=== PATIENT | female | born 1960 ===

== ENCOUNTER 2021-12-04 08:01 | Outpatient (CLI) | payer OTHER | END 2021-12-04 08:04 | disposition home or self-care (01) | LOC: RX STUDY 08:01 | PROVIDERS: ATTEND Surgery | DX: K57.20 Diverticulitis of large intestine with perforation and abscess without bleeding (principal); R19.4 Change in bowel habit; Z93.3 Colostomy status ==

== ENCOUNTER 2022-01-01 10:15 | Inpatient (IN) | payer OTHER ==
[2022-01-01] MEDS ORDERED: SYNTHROID137 MCG PO (12:33)
[2022-01-01] MEDS ORDERED: TRAMA PO (12:33)
[2022-01-01] MEDS ORDERED: CAMBIA50 MG PO (12:34)
[2022-01-01] MEDS ORDERED: HORIZANT600 MG PO (12:34)
[2022-01-01] MEDS ORDERED: ORPHENADRINE PO (12:36)
[2022-01-01] MEDS ORDERED: CALTRATE 600+D1 EAC1 PO (12:37)
[2022-01-04] MEDS ORDERED: NORFLEX100MG (08:52)
[2022-01-04] MEDS ORDERED: TRAMADOL HCL300 M1 (08:53)
[2022-01-09] MEDS ORDERED: OXYC1TAB9 PO (07:28)
[2022-01-09] MEDS ORDERED: HYOSCYAMINE0.125 M1 SL (07:29)
== END 2022-01-09 11:22 | disposition home or self-care (01) | DRG 331 ==
LOC: SURG 01-04 06:32 → O/R 01-04 06:32 → SURG 01-04 10:15
PROVIDERS: ADMIT Surgery; ATTEND Surgery
PROC: 0DBP4ZZ Excision of Rectum, Percutaneous Endoscopic Approach (ICD-10-PCS; 2022-01-04)
PROC: 0DTN4ZZ Resection of Sigmoid Colon, Percutaneous Endoscopic Approach (ICD-10-PCS; 2022-01-04)
PROC: 0DTJ4ZZ Resection of Appendix, Percutaneous Endoscopic Approach (ICD-10-PCS; 2022-01-04)
PROC: 0WQF4ZZ Repair Abdominal Wall, Percutaneous Endoscopic Approach (ICD-10-PCS; 2022-01-04)
PROC: 0DN84ZZ Release Small Intestine, Percutaneous Endoscopic Approach (ICD-10-PCS; 2022-01-04)
PROC: 0DJD8ZZ Inspection of Lower Intestinal Tract, Via Natural or Artificial Opening Endoscopic (ICD-10-PCS; 2022-01-04)
PROC: 0DBE4ZZ Excision of Large Intestine, Percutaneous Endoscopic Approach (ICD-10-PCS; principal; 2022-01-04 12:15)
DX: K57.20 Diverticulitis of large intestine with perforation and abscess without bleeding (principal); R19.4 Change in bowel habit; K52.9 Noninfective gastroenteritis and colitis, unspecified; K43.5 Parastomal hernia without obstruction or gangrene; N73.6 Female pelvic peritoneal adhesions (postinfective); N99.4 Postprocedural pelvic peritoneal adhesions; D12.1 Benign neoplasm of appendix; Z43.3 Encounter for attention to colostomy; Z20.822 Contact with and (suspected) exposure to COVID-19

== ENCOUNTER 2022-02-21 10:01 | Inpatient (IN) | payer OTHER ==
[~2022-02-21] VITALS: Ht 165.1 cm; Wt 72.6 kg
[~2022-02-21 10:01] MED LIST: CALTRATE 600+D1 EAC1 PO; CAMBIA50 MG PO; HORIZANT600 MG PO; HYOSCYAMINE0.125 M1 SL; NORFLEX100MG; ORPHENADRINE PO; OXYC1TAB9 PO; SYNTHROID137 MCG PO; TRAMA PO; TRAMADOL HCL300 M1
--- NOTE | 2022-02-21 10:25 | NUR ---
PACIENTE ALERTA Y ORIENTADA X3, REFIERE DOLOR ABDOMINAL Y NAUSEAS DESDE HACE DOS MA. REFIERE UN EPISODIO DE VOMITO. SE MINITOREAN VS Y SE UBICA EN OBSERVACION
--- NOTE | 2022-02-21 11:56 | NUR ---
SE ORIENTA PTE SOBRE TX A SEGUIR, EL CUAL REFIERE ENTENDER. SE COLECTAN MUESTRAS Y SE CANALIZA PTE UTILIZANDO MEDIDAS ASEPTICAS. SE ADM. MEDICAMENTOS NIKO ORDEN MEDICA. PEND CT ABD/PEL CON CONTRASTE IV
[2022-02-25] MEDS ORDERED: TRAM1TAB98 (11:00)
== END 2022-02-28 11:07 | disposition home or self-care (01) | DRG 389 ==
LOC: ER 10:01 → SURG 19:10 → SEC-K 19:10 → SURG 02-22 04:27 → SURH 02-26 13:25
PROVIDERS: ADMIT Surgery; ATTEND Surgery
PROC: BW21Y0Z Computerized Tomography (CT Scan) of Abdomen and Pelvis using Other Contrast, Unenhanced and Enhanced (ICD-10-PCS; 2022-02-21)
PROC: 0D9670Z Drainage of Stomach with Drainage Device, Via Natural or Artificial Opening (ICD-10-PCS; principal; 2022-02-22)
PROC: 02HV33Z Insertion of Infusion Device into Superior Vena Cava, Percutaneous Approach (ICD-10-PCS; 2022-02-23)
PROC: 3E0436Z Introduction of Nutritional Substance into Central Vein, Percutaneous Approach (ICD-10-PCS; 2022-02-23)
DX: K56.600 Partial intestinal obstruction, unspecified as to cause (principal); K57.20 Diverticulitis of large intestine with perforation and abscess without bleeding; K59.00 Constipation, unspecified; E87.5 Hyperkalemia; E03.9 Hypothyroidism, unspecified; Z20.822 Contact with and (suspected) exposure to COVID-19

== ENCOUNTER → 2024-08-04 10:07 | Outpatient (CLI) | payer OTHER ==
[~2024-08-04 10:07] MED LIST changes: +TRAM1TAB98
[2024-08-04 12:04] LABS: CALCIUM 9.1 mg/dL (8.5-10.1); CREATININE SERUM 0.65 mg/dL (0.55-1.02); GFR 91.48; POTASSIUM 4.82 mEq/L (3.5-5.1)
== END | disposition home or self-care (01) ==
LOC: LAB 10:07
PROVIDERS: ATTEND Surgery
DX: K57.20 Diverticulitis of large intestine with perforation and abscess without bleeding (principal); Z93.3 Colostomy status; R19.4 Change in bowel habit; K52.9 Noninfective gastroenteritis and colitis, unspecified; K38.8 Other specified diseases of appendix; K56.50 Intestinal adhesions [bands], unspecified as to partial versus complete obstruction; K64.8 Other hemorrhoids

== ENCOUNTER 2024-08-05 07:20 | Outpatient (CLI) | payer OTHER | END 2024-08-05 07:28 | disposition home or self-care (01) | LOC: TOM 07:20 | PROVIDERS: ATTEND Surgery | DX: Z93.3 Colostomy status (principal); K57.20 Diverticulitis of large intestine with perforation and abscess without bleeding; R19.4 Change in bowel habit; K52.9 Noninfective gastroenteritis and colitis, unspecified; K38.8 Other specified diseases of appendix; K56.50 Intestinal adhesions [bands], unspecified as to partial versus complete obstruction; K64.8 Other hemorrhoids | CPT/HCPCS: 74178; Q9965 ==